=== PATIENT | female | born 1985 | race Caucasian/White ===

== ENCOUNTER → 2020-04-23 | Outpatient (CLI) | payer BC | LOC: COL.RAD 13:26 | DX: R10.31 Right lower quadrant pain (principal); M47.816 Spondylosis without myelopathy or radiculopathy, lumbar region; M47.814 Spondylosis without myelopathy or radiculopathy, thoracic region | CPT/HCPCS: Q9967 ==

== ENCOUNTER 2021-10-03 12:16 | Emergency (ER) | payer BC ==
[2021-10-03 12:34] VITALS: PULSE 98
[2021-10-03 12:45] VITALS: TEMP 98.2
[2021-10-03 12:59] LABS: BASO # 0.1 K/mm3 (0.0-0.2); BASO % 0.4 % (0.0-2.0); EOS # 0.2 K/mm3 (0.0-0.7); EOS % 1.3 % (0.0-4.0); GRAN # 8.7 K/mm3 (1.4-6.5); GRAN % 70.2 % (42.2-75.2); HEMOGLOBIN 13.7 g/dl (12.5-16.0); LYMPH # 2.7 K/mm3 (1.2-3.4); MEAN CELL VOLUME 90 fl (80.0-100.0); MEAN CORPUSCULAR HEMOGLOBIN 30 pg (27-31); MEAN CORPUSCULAR HGB CONC 33 g/dl (33.0-37.0); MEAN PLATELET VOLUME 10.6 fl (7.4-10.4); MONO # 0.7 K/mm3 (0.1-0.6); MONO % 5.8 % (1.7-9.3); PLATELET COUNT 300 K/mm3 (130-400); RED BLOOD COUNT 4.55 M/mm3 (4.10-5.30); REDCELL DISTRIBUTION WIDTH-CV 13.9 % (11.5-14.5)
[2021-10-03 13:12] LABS: ALBUMIN 4.5 gm/dL (3.5-5.0); BILIRUBIN,TOTAL 0.8 mg/dL (0.2-1.2); C-REACTIVE PROTEIN 0.9 mg/dL (0.00-0.50); CALCIUM 9.4 mg/dL (8.4-10.2); CREATININE, serum 0.82 mg/dL (0.57-1.11); POTASSIUM 3.5 mmol/L (3.5-4.5); TOTAL PROTEIN 7.8 gm/dL (6.2-8.1)
[2021-10-03 13:20] LABS: COLLECTION METHOD CLEAN CATCH
[2021-10-03 13:47] LABS: MUCOUS Present (NOT PRESENT); SQUAMOUS EPITHELIAL 20-50 /hpf (0-10); URINE APPEARANCE Clear (CLEAR/HAZY); URINE BACTERIA Many /hpf (NONE SEEN); URINE COLOR Yellow (YELLOW)
[2021-10-03 13:48] LABS: PH 6 (5-8); URINE BILIRUBIN Negative (NEGATIVE); URINE GLUCOSE Negative (NEGATIVE); URINE KETONE Negative (NEGATIVE); URINE PROTEIN(semi-quant) Negative (NEGATIVE)
[2021-10-03 13:49] LABS: URINE BLOOD 2+ (NEGATIVE); URINE LEUKOCYTE ESTERASE Negative (NEGATIVE); URINE NITRATE Negative (NEGATIVE); URINE UROBILINOGEN Negative (NEGATIVE)
[2021-10-03 14:37] VITALS: BP 106/81
== END 2021-10-03 14:41 | disposition home or self-care (01) ==
LOC: COL.ER 12:16
PROVIDERS: Family Medicine
DX: K52.9 Noninfective gastroenteritis and colitis, unspecified (principal); D72.829 Elevated white blood cell count, unspecified; Z32.02 Encounter for pregnancy test, result negative
CPT/HCPCS: J7120; Q9967